=== PATIENT | female | born 1985 ===

== ENCOUNTER 2017-07-13 11:39 | Emergency (ER) | payer SELFPAY ==
[2017-07-13 11:47] VITALS: BP 131/77
[2017-07-13 12:05] LABS: Hematocrit 32.6 % (30.3-42.9); Hemoglobin 10.3 gm/dl (10.1-14.3); Mean Corpuscular HGB Conc 32 % (30-34); Mean Corpuscular Hemoglobin 22 pg (28-32); Mean Corpuscular Volume 71 fl (79-97); Platelet Count 624 K/mm3 (140-440); Red Blood Count 4.63 M/mm3 (3.65-5.03); Red Cell Distribution Width 16.9 % (13.2-15.2)
[2017-07-13 12:19] LABS: BUN/Creatinine Ratio 8; Blood Urea Nitrogen 5 mg/dL (7-17); Hemolysis Index 2
[2017-07-13 12:33] LABS: Bacteria,Urine 2+ /HPF (Negative); Bilirubin,Urine NEG (Negative); Blood,Urine NEG (Negative); Color,Urine Yellow (Yellow); HCG Qualitative,Urine Negative (Negative); Mucus,Urine FEW /HPF; Nitrite,Urine NEG (Negative); Urobilinogen,Urine < 2.0 mg/dL (<2.0)
== END 2017-07-13 20:00 | disposition left against medical advice (07) ==
LOC: ED 11:39
DX: R51 Headache (principal); Z53.21 Procedure and treatment not carried out due to patient leaving prior to being seen by health care provider
CPT/HCPCS: 36415; 80048; 81001; 81025; 85027